=== PATIENT | female | born 1925 | race Caucasian/White ===

== ENCOUNTER → 2016-09-07 | Day surgery (SDC) | payer MEDICARE, BC ==
[~2016-09-07] MED LIST: ACETAMINOPHEN PO; ALEVE; ALEVE220 M1 PO; ALPRAZOLAM PO; ASPIRIN EC81 M1 PO; ASPIRIN PO; ASPIRIN81 M1 PO; ASPIRIN81 M2 PO; ATORVASTATIN CA10 MG PO; CIPRO PO; CLOPIDOGREL75 MG PO; COLACE PO; COREG PO; COZAAR25 MG PO; CRESTOR; CRESTOR PO; CRESTOR5 MG PO; DICLOFENAC; DICLOFENAC PO; DIOVAN HCT 80/11 TAB; DIOVAN HCT 80/11 TAB PO; EC-NAPROSYN500 MG PO; HYDROCHLOROTH12.5 M1 PO; HYDROCHLOROTH12.5 MG PO; HYDROCHLOROTHIA25 MG PO; HYDROCODON-ACE1 EACH PO; KCL PO; LISINOPRIL PO; MIRALAX255 GM PO; NABUMETONE500 MG PO; NITROGLYGERIN0.4 MG SL; NORCO 5/325 TAB1 TAB PO; ORAL GEL15 GM TOP; PREMARIN; PREMARIN VAG CR45 GM MC; PROTONIX PO; REGLAN10 MG PO; RELAFEN500 MG PO; SPIRONOLAC1 TAB 25/2 PO; TYLOX 5/500 CAP1 CAP PO; ULTRAM PO; VITAMIN D31000 UNIT; WELCHOL625 MG PO; ZOFRAN PO
--- NOTE | ~2016-09-07 | OR ---
Unit #: [id number] #: [id number] Patient: LOU MÉNDEZ [id number] [address] [address] [id number] MR#: [id number] NAME: LOU MÉNDEZ ROOM: Date of Procedure: 09/07/2016 Admission Date: 09/07/2016 Surgeon: Vamshi Lemon M.D. : 1925 Attending Physician: Vamshi Lemon M.D. Primary Care Physician: William Tabor M.D. OPERATIVE REPORT JOB NOTE: CC: [facility] PREOPERATIVE DIAGNOSES Spinal stenosis, degenerative disk disease, back pain, radiculopathy. POSTOPERATIVE DIAGNOSES Spinal stenosis, degenerative disk disease, back pain, radiculopathy. PROCEDURE PERFORMED Lumbar epidural steroid injection with intravenous sedation and fluoroscopic guidance for needle localization. INDICATIONS FOR PROCEDURE The patient is an 89-year-old female with return of back and right lower extremity pain. She has significant multilevel multifactorial degenerative disk disease. She was treated p.r.n. with epidural steroids. Last was completed 5 months ago. She did well. She is not a surgical candidate. We are going to proceed with repeat injection today. DESCRIPTION OF PROCEDURE The patient was placed in a seated position. Standard monitors were applied. 1 mg of Versed was given for sedation and anxiolysis, which was adequate. Vital signs remained stable. Sterile prep and drape then of the lumbar area was performed. The skin then at the L3-L4 level was localized with 1% lidocaine. An 18-gauge Hustead needle was then advanced via loss of resistance technique and fluoroscopic guidance in toward the epidural space. After confirming proper positioning with fluoroscopy and radiographic contrast, 80 mg of Depo-Medrol and 6 mL of 0.5% lidocaine were deposited. The patient tolerated the procedure otherwise well and discharged to the recovery room in stable condition. Dictated by... Vamshi Lemon M.D. LHP/modl TD: 09/07/2016 15:16 JOB #: [id number] Unit #: [id number] #: [id number] Patient: LOU MÉNDEZ OPERATIVE REPORT Page 1 of 1 X Vamshi Lemon MD X PROCEDURE OPERATIVE NOTE
== END | disposition home or self-care (01) ==
LOC: CCSC 10:33
DX: M51.16 Intervertebral disc disorders with radiculopathy, lumbar region (principal); M48.06 Spinal stenosis, lumbar region; I10 Essential (primary) hypertension; E11.9 Type 2 diabetes mellitus without complications; Z79.02 Long term (current) use of antithrombotics/antiplatelets; Z86.73 Personal history of transient ischemic attack (TIA), and cerebral infarction without residual deficits; Z88.2 Allergy status to sulfonamides; Z88.6 Allergy status to analgesic agent; Z88.8 Allergy status to other drugs, medicaments and biological substances; Z79.1 Long term (current) use of non-steroidal anti-inflammatories (NSAID); Z79.899 Other long term (current) drug therapy
CPT/HCPCS: J1040; J2250

== ENCOUNTER 2016-09-14 11:34 | Inpatient (IN) | payer MEDICARE, BC ==
--- NOTE | ~2016-09-14 | CR72 ---
[facility] A Service of [facility] & [facility] RADIOLOGY TEXT RESULTS PATIENT: LOU MÉNDEZ LOCATION: [place] [address] : [birth year] UNIT #: [id number] AGE: [address]: NORMA LOPES MD SEX: F ORDER DR: [id number] [facility] [address] [place], [place] [address] [id number] I MR#: [id number] Acc #: [id number] NAME: LOU MÉNDEZ. : 1925 SEX: F STUDY DATE/TIME: 09/14/2016 12:51 UNIT: [facility] ROOM: [facility] STUDY DESCRIPTION: CR Chest Single View Portable Attending Physician: Norma Lopes M.D. Ordering Physician: Avery Norman M.D. Primary Care Physician: Primary Care Physician No MEDICAL IMAGING REPORT This report is preliminary unless electronic signature is present EXAM Portable chest HISTORY Hypertension noted today. TECHNIQUE Single AP view of the chest was obtained and compared with 04/30/2014. FINDINGS Pacemaker leads are satisfactory. The heart and mediastinum are stable. In the lungs, pulmonary vascular markings are prominent and Demetria's lines are noted. Mild peribronchial cuffing is seen, as well. No pleural fluid is seen and no focal infiltrates are noted. IMPRESSION Moderate pulmonary vascular congestion and interstitial edema is noted, new since the previous exam. Dictated by... Tuan Neal M.D. THIS IS AN ELECTRONICALLY VERIFIED REPORT Tuan Neal M.D. at 09/15/2016 6:58 AM RLF/carlos TD: 09/14/2016 18:46 JOB #: [id number] MEDICAL IMAGING REPORT Page 1 of 1 COPY
--- NOTE | ~2016-09-14 | DS ---
Unit #: [id number] #: [id number] Patient: LOU MÉNDEZ [id number] [address] [address] [id number] I MR#: [id number] NAME: LOU MÉNDEZ. ROOM: 552 Age: 89 Sex: F Admission Date: 09/14/2016 : 1925 Discharge Date: 09/16/2016 Attending Physician: Presley Redd M.D. Primary Care Physician: No Primary Care Physician DISCHARGE SUMMARY PRIMARY DIAGNOSES 1. Hypertensive emergency with encephalopathy and pulmonary edema. 2. Atrial fibrillation with rapid ventricular response. SECONDARY DIAGNOSES 1. Pulmonary edema. 2. Hypertensive encephalopathy. 3. Hypokalemia. 4. Chronic back pain. 5. Abnormal CT angiogram of the neck. HOSPITAL COURSE The patient was admitted to the hospital with markedly elevated blood pressure, encephalopathy and pulmonary edema. She was started on a Cardene drip with rapid improvement in her benign prostatic hypertrophy and was transitioned to increased p.o. Coreg and Cozaar. She was able to be taken off of the drip and did well for the next 24 hours. The patient did have some symptoms that might be suggestive of sundowning and she is advised to follow up with her primary care physician for mini mental status exams and possible evaluation for early dementia. STORAGE AND BACKUP ADMINISTRATOR Dr. Arnulfo Hou - Cardiology. The patient did have an abnormal CT angiogram of the neck which, considering her advanced age of 89, would likely be treated conservatively. Consideration could be made by the patient's primary care physician, Dr. Tabor, for referral to a vascular surgeon if this is felt to be indicated, in his opinion. DISCHARGE DISPOSITION To home. DISCHARGE STATUS Stable. DISCHARGE ACTIVITY Ad reno. DISCHARGE DIET 2000 mg sodium heart healthy diet. DISCHARGE FOLLOWUP With Dr. Tabor in 2-4 weeks and follow up with Dr. Vyas in 2-6 weeks. Unit #: [id number] #: [id number] Patient: LOU MÉNDEZ DISCHARGE MEDICATIONS 1. Coreg 12.5 mg p.o. b.i.d. 2. Atorvastatin 10 mg p.o. daily. 3. Cozaar 25 mg p.o. daily. 4. Aleve 220 mg p.o. b.i.d. p.r.n. pain. 5. Plavix 75 mg p.o. daily. 6. Nitroglycerin 0.4 mg sublingual q.5 minutes p.r.n. chest pain. Dictated by... Presley Redd M.D. ABIGAIL/nilson TD: 09/17/2016 11:20 JOB #: [id number] DISCHARGE SUMMARY Page 1 of 1 X Presley Redd MD X DISCHARGE SUMMARY
--- NOTE | ~2016-09-14 | CO ---
Unit #: [id number] #: [id number] Patient: LOU MÉNDEZ [id number] [facility] [address] [place], [place] [address] [id number] MR#: [id number] NAME: LOU MÉNDEZ ROOM: 552 Age: 89 Sex: F Admission Date: 09/14/2016 : 1925 Attending Physician: Presley Redd M.D. Primary Care Physician: No Primary Care Physician CONSULTATION REPORT HISTORY OF PRESENT ILLNESS This 89-year-old white female patient was at the pain clinic for an epidural today. Her blood pressure was found to be 223/141. Her was called, and then she was sent to the ER at [facility]. She was started on a Cardene drip, and her blood pressure now is 150/80. The patient could not talk, and she was confused at the time. She is mentally clearer now. She denies any chest pain. She has no shortness of breath on exertion. No PND or orthopnea. She has history of asystole in 2006 after colonoscopy and then she subsequently had permanent pacemaker. She has been followed by Dr. Vyas and Dr. Sanchez. She has hypertension and hyperlipidemia and diet-controlled diabetes. She had a normal cardiac cath several years ago. 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 Her EKG shows no acute changes. PERSONAL HISTORY She is a nonsmoker. Used to work in a [employer] a [employer] firm called [employer]. Currently lives at home with her . 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 She also had appendectomy and hemorrhoidectomy. FAMILY HISTORY Negative for premature coronary artery disease, coronary artery disease or sudden . Mother of a stroke. HOME MEDICATIONS 1. Nitroglycerin sublingual p.r.n. 2. Coreg 6.25 b.i.d. 3. Plavix 75 mg daily. 4. Lipitor 10 mg daily. 5. Aleve 220 mg p.o. b.i.d. p.r.n. REVIEW OF SYSTEMS No fever, chills, night sweats or weight loss. All others negative except as mentioned above. PHYSICAL EXAMINATION VITAL SIGNS: Blood pressure 150/80, heart rate 80 per minute, and respiratory rate 14 per minute. GENERAL APPEARANCE: The patient is well developed. HEENT: Oral mucosa without cyanosis or pallor. No xanthelasma. NECK: No JVD. CARDIOVASCULAR: Regular rate and rhythm. PMI is not displaced on Unit #: [id number] #: [id number] Patient: LOU MÉNDEZ auscultation. S1 and S2 are normal. No S3, S4, murmur, rubs or clicks noted. VASCULAR: Carotid pulses are brisk without bruits. Abdominal aorta without bruit. Femoral and pedal pulses are normal with normal pulse amplitude. LUNGS: Lungs are clear to auscultation without rales, rhonchi or wheezes. No accessory muscle use noted. ABDOMEN: Soft, nontender. No hepatosplenomegaly. RECTAL: Deferred. EXTREMITIES: Warm and dry. No cyanosis or clubbing. No pedal edema. MUSCULOSKELETAL: No scoliosis. DERMATOLOGIC: No stasis dermatitis. NEUROLOGIC: Alert and oriented x3, pleasant affect. DIAGNOSTIC STUDIES LAB DATA: Glucose 115, BUN 15, creatinine 0.7, sodium 134, potassium 3.5. Troponin less than 0.05. WBC 7.9, hemoglobin 12.8, hematocrit 37.2, platelet count 173,000. IMPRESSION 1. Accelerated hypertension. 2. Diet-controlled diabetes. 3. Hyperlipidemia. 4. History of permanent pacemaker for asystole. 5. History of TIAs and stroke. PLAN The patient is on a Cardene drip at this time, which we will continue until morning, and then we will adjust blood pressure medications. Review echocardiogram. Thank you for letting me participate in her care. Dictated by... Sanaz Kaufman M.D. AUDRA/binu TD: 09/15/2016 11:14 JOB #: [id number] CONSULTATION REPORT Page 1 of 1 X Sanaz Kaufman MD CONSULTATION REPORT
--- NOTE | ~2016-09-14 | HP ---
Unit #: [id number] #: [id number] Patient: LOU MÉNDEZ [id number] [address] [place], [place] [address] [id number] MR#: [id number] NAME: LOU MÉNDEZ ROOM: Age: 89 Sex: F Admission Date: 09/14/2016 : 1925 Attending Physician: Avery Norman M.D. Primary Care Physician: No Primary Care Physician HISTORY AND PHYSICAL CHIEF COMPLAINT Altered mental status. HISTORY OF PRESENT ILLNESS The patient is an 89-year-old female with a history of a spinal stenosis, degenerative disease, back pain and radiculopathy, was brought from the pain clinic while waiting for the epidural with altered mental status. 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 Brought to the emergency room with an elevated blood pressure; blood pressure systolic in the range of 240s. The patient's procedure was cancelled and brought to the emergency room. The patient received the multiple doses of labetalol and still the blood pressure remained high and started on Cardene drip for the uncontrolled blood pressure with the headache and the patient said patient stopped taking the Plavix on Tuesday for the procedure and patient denies any chest pain, positive for nausea, denies any vomiting, denies any shortness of breath. The patient's CT of the head is negative for acute pathology and the patient is being admitted for the above reasons. PAST MEDICAL HISTORY History of a sick sinus syndrome, hypertension, hyperlipidemia, CVA, left ventricular hypertrophy, former smoker. PAST SURGICAL HISTORY Foot surgery, appendectomy, oophorectomy, hysterectomy, tonsillectomy, probable cystoscopy of the kidney stone, sebaceous cyst lanced, permanent pacemaker, hemorrhoidectomy, brain cyst removed. SOCIAL HISTORY The patient lives at home alone. She quit smoking in the '80s. No illicit drugs or alcohol use. FAMILY HISTORY Mother from a stroke. ALLERGIES Sulfa, opiates, Demerol. HOME MEDICATIONS She is on nitroglycerin, Coreg, Plavix, Lipitor, and Aleve. REVIEW OF SYMPTOMS Unit #: [id number] #: [id number] Patient: MIVELAZ,LOU M Positive for headache and denies any visual changes, denies any chest pain, denies any short of breath, positive for nausea, denies any abdominal pain and other systems reviewed and are negative. PHYSICAL EXAMINATION GENERAL APPEARANCE: On examination the patient is lying on a bed not in acute distress. VITAL SIGNS: Temperature is afebrile, pulse 78, respiratory rate 15, blood pressure 226/131, sating 99% at room air. HEENT: Head atraumatic and normocephalic. Pupils equal, round and reacting to light and accommodation. Extraocular movements are intact. NECK: Supple. LUNGS: Decreased air entry. HEART: Regular rate and rhythm. ABDOMEN: Soft, positive bowel sounds. EXTREMITIES: No cyanosis. No clubbing. NEUROLOGIC: Awake and alert. DIAGNOSTIC STUDIES LABORATORY DATA: Troponin less than 0.05. Urine drug careen is negative. UA shows negative bacteria. BNP is 138. Sodium 134, potassium 3.5, chloride 100, bicarb 26, glucose 115, BUN 15, creatinine 0.7, AST 21, ALT 15, alkaline phosphatase 78, WBC 7.9, hemoglobin 12.8, hematocrit 37.5, platelets 173. ASSESSMENT 1. Hypertensive urgency. 2. Altered mental status. 3. Back pain. PLAN Plan to admit to the inpatient with the telemetry. Continue with the tapering of the Cardene drip. Cardiology consult for the blood pressure management and check the echocardiogram and serial troponins and further recommendations will follow as more lab results are available. Dictated by Elvia Mckay/yenni TD: 09/14/2016 16:36 JOB #: [id number] HISTORY AND PHYSICAL Page 1 of 1 X NORMA MCDANIELS MD X HISTORY AND PHYSICAL
--- NOTE | ~2016-09-14 | CT23 ---
[facility] A Service of [facility] & [facility] RADIOLOGY TEXT RESULTS PATIENT: LOU MÉNDEZ LOCATION: [place] [address] : [birth year] UNIT #: [id number] AGE: [address]: NORMA MCDANIELS MD SEX: F ORDER DR: [id number] [facility] [address] [place], [place] [address] [id number] MR#: [id number] Acc #: [id number] NAME: LOU MÉNDEZ : 1925 SEX: F STUDY DATE/TIME: 09/14/2016 12:22 UNIT: [facility] ROOM: STUDY DESCRIPTION: CT Angio Neck Attending Physician: Avery Norman M.D. Ordering Physician: Avery Norman M.D. Primary Care Physician: Primary Care Physician No MEDICAL IMAGING REPORT This report is preliminary unless electronic signature is present EXAM CTA head and neck HISTORY Refer below. FINDINGS Please refer to the CTA head report on the same date for complete details. Dictated by... Daniella Mayberry M.D. THIS IS AN ELECTRONICALLY VERIFIED REPORT Daniella Mayberry M.D. at 09/14/2016 11:43 PM SAC/pcl TD: 09/14/2016 15:40 JOB #: [id number] MEDICAL IMAGING REPORT Page 1 of 1 COPY
--- NOTE | ~2016-09-14 | EKG ---
PATIENT: LOU MÉNDEZ UNIT #: [id number] Ventricular Rate: 69 BPM Atrial Rate: 69 BPM P-R Interval: 244 ms QRS Duration: 96 ms Q-T Interval: 396 ms QTC Calculation(Bezet): 424 ms P [place]: 85 degrees Calculated R [place]: -10 degrees Calculated T [place]: 126 degrees Diagnosis Line: Sinus rhythm with 1st degree A-V block Diagnosis Line: ST and T wave abnormality, consider lateral ischemia Diagnosis Line: Abnormal ECG Diagnosis Line: When compared with ECG of 30-APR-2014 18:08, Diagnosis Line: Inverted T waves have replaced nonspecific T wave Diagnosis Line: abnormality in Lateral leads Diagnosis Line: Confirmed by GRACIELA SIMS MD ([id number]) on Diagnosis Line: 09/16/2016 7:10:49 AM INTERPRETING MD: JOE
--- NOTE | ~2016-09-14 | CT71 ---
[facility] A Service of [facility] & [facility] RADIOLOGY TEXT RESULTS PATIENT: LOU MÉNDEZ LOCATION: [facility] [id number] : [birth year] UNIT #: [id number] AGE: [address]: Presley Redd MD SEX: F ORDER DR: [id number] [facility] [address] [place], [place] [address] [id number] I MR#: [id number] Acc #: [id number] NAME: LOU MÉNDEZ. : 1925 SEX: F STUDY DATE/TIME: 09/14/2016 12:04 UNIT: [facility] ROOM: [facility] STUDY DESCRIPTION: CT Head Wo Contrast Attending Physician: Beryl Lopes M.D. Ordering Physician: Avery Norman M.D. Primary Care Physician: Primary Care Physician No MEDICAL IMAGING REPORT This report is preliminary unless electronic signature is present EXAM CT head, 09/14/2016 HISTORY Patient moving during exam, tech held one scan. Evaluate for CVA. Altered mental at Pain Management, confused and crying, slurred speech. Hypertension, diabetes. FINDINGS This CT exam was performed with one or more of the following radiation dose reduction techniques: Automatic exposure control, adjustment of mA and/or kV according to patient size, and iterative reconstruction. CT of the head performed. Study degraded by streak artifact from hands helping to stabilized head. The comparison is dated 08/19/2013. The brainstem is unremarkable. The cerebellum shows areas of encephalomalacic change in the bilateral posterior mid cerebellar hemispheres, more pronounced on left than right and consistent with remote vascular insult. No change in appearance from prior study. There is no evidence of acute cerebellar abnormality. The cerebral hemispheres show overall preservation of hollis matter-white matter differentiation. No hemorrhage. No evidence of acute cortical ischemia. The midline structures are nondisplaced. No acute basal ganglia abnormality. There are periventricular and deep white matter tract probable sequelae of chronic microvascular ischemia. There is no intra- or extraaxial mass effect or abnormal intracranial fluid collection. The ventricles, cisterns and sulci show mild generalized enlargement consistent with mild generalized atrophy. Similar appearance on prior examination. There are cavernous carotid and distal vertebral arterial calcifications. The visualized intraorbital soft tissues are unremarkable. Mucosal thickening ethmoid air cells. There is no evidence of acute sinus disease. No acute bony abnormality. [facility] A Service of [facility] RADIOLOGY TEXT RESULTS PATIENT: LOU MÉNDEZ LOCATION: [place] [address] : [birth year] UNIT #: [id number] AGE: [address]: Presley Redd MD SEX: F ORDER DR: IMPRESSION 1. No acute abnormality is seen in the brain. If the patient has ongoing neurologic symptoms, consider follow-up imaging, preferably with MRI if the patient is a candidate. Study somewhat degraded by streak artifact from technologist hands used to stabilize head. 2. Areas of chronic encephalomalacic change bilateral cerebellar hemispheres. No change from 2014 and likely reflecting remote vascular insults. 3. Mild generalized atrophy. Stable. 4. Periventricular and deep white matter tract probable sequelae of chronic microvascular ischemia. Stable. Dictated by... Jasen Bernard M.D. THIS IS AN ELECTRONICALLY VERIFIED REPORT Jasen Bernard M.D. at 09/15/2016 6:04 PM JUAN DAVID/carlos TD: 09/14/2016 18:40 JOB #: [id number] MEDICAL IMAGING REPORT Page 1 of 1 COPY
--- NOTE | ~2016-09-14 | CT17 ---
[facility] A Service of [facility] RADIOLOGY TEXT RESULTS PATIENT: LOU MÉNDEZ LOCATION: [place] [address] : [birth year] UNIT #: [id number] AGE: [address]: NORMA MCDANIELS MD SEX: F ORDER DR: [id number] [facility] [address] [place], [place] [address] [id number] MR#: [id number] Acc #: [id number] NAME: LOU MÉNDEZ : 1925 SEX: F STUDY DATE/TIME: 09/14/2016 12:22 UNIT: [facility] ROOM: STUDY DESCRIPTION: CT Angio Head Attending Physician: Avery Norman M.D. Ordering Physician: Avery Norman M.D. Primary Care Physician: Primary Care Physician No MEDICAL IMAGING REPORT This report is preliminary unless electronic signature is present EXAM CT angiogram head and neck HISTORY Evaluate for CVA. 89-year-old female with a history of hypertension, diabetes and cardiac disease presents with altered mental status at pain management. She is confused and crying with slurred speech today. TECHNIQUE CT angiography head and neck vessels performed during the intravenous administration of 100 mL of Isovue-370. Imaging acquired in the axial plane followed by multiple reconstructed and reformatted images for the purposes of 3-D CT angiography head and neck vessels. This CT exam was performed with one or more of the following radiation dose reduction techniques: automatic exposure control, adjustment of mA and/or kV according to patient size, and iterative reconstruction. COMPARISON STUDIES Comparison is made earlier head CT, same day. FINDINGS CT ANGIOGRAM NECK: The arch shows atherosclerotic vascular calcifications, including great vessel origins. No hemodynamically-significant narrowing is suspected at great vessel origins and there is bovine origin of the left common carotid artery. There is atherosclerotic vascular calcification at the origin of the right subclavian. This probably does result in significant stenosis, perhaps moderate, not optimally assessed on this study of the head and neck. Assessment of the right carotid system shows partially calcified atherosclerotic plaque involving the distal common and internal carotid [facility] A Service of [facility] RADIOLOGY TEXT RESULTS PATIENT: LOU MÉNDEZ LOCATION: [facility] [id number] : [birth year] UNIT #: [id number] AGE: [address]: NORMA MCDANIELS MD SEX: F ORDER DR: artery, including the bulb. By NASCET criteria, there is essentially 0% diameter stenosis. There is [id number] stenosis supraclinoid ICA on the right. Assessment of the left carotid system shows partially calcified plaque at the bifurcation but by NASCET criteria, there is 0% stenosis. There is calcified plaque in the siphon with [id number]-[id number] stenosis, likely supraclinoid ICA. The right vertebral artery is patent throughout. The left vertebral artery is patent throughout. Both supply the basilar. Evaluation of the intracranial circulation shows areas of likely true stenosis in the left MCA territory, including proximal left M2 vessel and sylvian vessel. There is long segment irregular stenosis in the more distal left MCA vessels likely. The right MCA vessels have a more normal appearance. The left P1 vessel is quite hypoplastic. There is a large left posterior communicator with essentially origin left posterior cerebral artery distribution. There is possibly a right posterior communicator with some duplication right posterior cerebral artery distribution. This anatomy is not clear. The major dural venous sinuses are grossly patent. No significant anterior communicating artery is seen. There are chronic insults to cerebellum noted on the head CT. Some irregularity is seen in the left posterior cerebral artery distribution. As noted above, the anatomy of the right posterior cerebral artery is not well delineated and I cannot exclude some type of collateral supply/disease. Patient has had cataract surgery bilaterally. The paranasal sinuses and mastoid air cells are clear. There are degenerative changes in the cervical spine. IMPRESSION 1. By NASCET criteria, 0% stenosis at either carotid bifurcation. Both vertebral arteries are patent and supply the basilar. 2. There is likely hemodynamically significant stenosis at the origin of the right subclavian vessel. 3. There is likely hemodynamically significant stenosis in the bilateral carotid siphons. 4. There are areas of irregular narrowing in the left MCA territory, including left M2 vessel fairly proximally as well as multiple areas in the sylvian branches. This could be due to intracranial atherosclerotic disease or possibly thromboembolic disease with some recanalization. 5. There is probably atherosclerotic disease involving both posterior cerebral artery distributions. It appears that there is origin to the left posterior cerebral artery distribution with a very hypoplastic left P1 vessel. Anatomy on the right side is more complex. There is probably at least some atherosclerotic disease to [facility] A Service of [facility] RADIOLOGY TEXT RESULTS PATIENT: LOU MÉNDEZ LOCATION: [facility] : [birth year] UNIT #: [id number] AGE: [address]: NORMA MCDANIELS MD SEX: F ORDER DR: the posterior cerebral artery distribution. Allowing for the complex anatomy, no definite vascular cutoff is seen. If the patient is a candidate for MRI, this would be suggested to further evaluate the possibility of acute stroke. 6. There is no suspicion for an intracranial aneurysm, allowing for the technical limitation of CT angiography in general for assessment for assessment of aneurysm at the level of the skull base. STAT * RESULT Dictated by... Daniella Mayberry M.D. THIS IS AN ELECTRONICALLY VERIFIED REPORT Daniella Mayberry M.D. at 09/14/2016 11:43 PM WOJCIECH/madhuri TD: 09/14/2016 15:24 JOB #: [id number] MEDICAL IMAGING REPORT Page 1 of 1 COPY
[~2016-09-14 11:34] MED LIST changes: -COZAAR25 MG PO
[2016-09-14 12:02] LABS: BASOPHIL# 0.1 X10e3 (0-0.3); BASOPHIL% 0.8 % (0-2.5); EOSINOPHIL# 0.1 X10e3 (0-0.7); EOSINOPHIL% 0.9 % (0.0-7.0); HEMATOCRIT 37.5 % (35.0-45.0); HEMOGLOBIN 12.8 gm/dL (12.0-16.0); LYMPHOCYTE# 2.4 X10e3 (1.0-3.5); LYMPHOCYTE% 29.9 % (17.0-45.0); MEAN CELL VOLUME 96.2 FL (83-96); MEAN CORPUSCULAR HEMOGLOBIN 32.8 PG (28-34); MEAN CORPUSCULAR HGB CONC 34.1 g/dL (30-36); MEAN PLATELET VOLUME 8.9 FL (6.5-11.5); MONOCYTE# 0.6 X10e3 (0-1.0); MONOCYTE% 7.2 % (3.0-12.0); NEUTROPHIL# 4.8 X10e3 (1.5-7.1); NEUTROPHIL% 61.2 % (40-75); PLATELET COUNT 173 X10e3 (140-420); RED BLOOD COUNT 3.89 X10e (3.90-5.30); RED CELL DISTRIBUTION WIDTH 14.3 % (11.0-15.5); WHITE BLOOD COUNT 7.9 X10e3 (4.0-10.5)
[2016-09-14 12:03] LABS: DIFF IND NO
[2016-09-14 12:16] LABS: PARTIAL THROMBOPLASTIN TIME 24.9 SECONDS (23.5-31.3); PROTHROMBIN TIME (PATIENT) 10.9 SECONDS (10.0-11.7)
[2016-09-14 12:26] LABS: POC - CREATININE 0.76 mg/dL (0.44-1.03); POC - GFR >60.0 mL/min (>60)
[2016-09-14 12:29] LABS: ALBUMIN SERUM 4.1 g/dL (3.5-5.0); BILIRUBIN, DIRECT 0.1 mg/dL (0.0-0.2); BILIRUBIN,INDIRECT 0.4 mg/dL (0.0-0.9); BILIRUBIN,TOTAL 0.5 mg/dL (0.2-2.0); BUN/CREATININE RATIO 21.42; CALCIUM SERUM 9.5 mg/dL (8.4-10.2); CREATININE SERUM 0.7 mg/dL (0.6-1.4); GLOM FILT RATE Estimated 76.8 mL/min (>60); POTASSIUM 3.5 mmol/L (3.5-5.1); PROTEIN TOTAL SERUM 7.6 g/dL (6.0-8.3)
[2016-09-14 13:54] LABS: URINE SOURCE CLEAN CATCH
[2016-09-14 14:18] LABS: URINE APPEARANCE CLEAR; URINE BILIRUBIN NEG (NEG); URINE BLOOD TRACE (NEG); URINE COLOR YELLOW; URINE GLUCOSE NEG (NEG); URINE KETONE NEG (NEG); URINE LEUKOCYTE ESTERASE NEG (NEG); URINE NITRATE NEG (NEG); URINE PH 8.5 (5-8); URINE PROTEIN NEG (NEG); URINE SPECIFIC GRAVITY 1.012 (1.003-1.035); URINE UROBILINOGEN 0.2 MG/DL (NEG)
[2016-09-14 14:23] LABS: URINE BACTERIA AUWI NEG (NEGATIVE); URINE SQUAMOUS EPITHELIAL CELL NONE SEEN /[HPF]; UWBCS1 AUWI 0-2 (0-5)
[2016-09-14 14:24] LABS: CULTURE INDICATED? NO
[2016-09-14 14:39] LABS: AMPHETAMINE NEG (NEG); BARBITURATES NEG (NEG); BENZODIAZEPINES NEG (NEG); COCAINE NEG (NEG); MARIJUANA NEG (NEG); OPIATES NEG (NEG); TRICYCLIC ANTIDEPRESSANTS NEG (NEG); U METHADONE NEG (NEG)
[2016-09-14 14:58] LABS: POC - CKMB <1.0 ng/mL (0.0-7.9); POC - TROPONIN <0.05 ng/mL (<=0.05)
[2016-09-14 21:26] LABS: CK TOTAL 34 IU/L (26-140)
[2016-09-15 06:06] LABS: BUN/CREATININE RATIO 21.42; CALCIUM SERUM 8.7 mg/dL (8.4-10.2); CREATININE SERUM 0.7 mg/dL (0.6-1.4); GLOM FILT RATE Estimated 76.8 mL/min (>60); POTASSIUM 3.1 mmol/L (3.5-5.1)
[2016-09-15 06:55] LABS: BASOPHIL# 0.1 X10e3 (0-0.3); BASOPHIL% 1.1 % (0-2.5); EOSINOPHIL# 0.1 X10e3 (0-0.7); EOSINOPHIL% 1.1 % (0.0-7.0); HEMATOCRIT 34.9 % (35.0-45.0); HEMOGLOBIN 12.1 gm/dL (12.0-16.0); LYMPHOCYTE# 1.7 X10e3 (1.0-3.5); LYMPHOCYTE% 30.2 % (17.0-45.0); MEAN CELL VOLUME 95.6 FL (83-96); MEAN CORPUSCULAR HEMOGLOBIN 33.1 PG (28-34); MEAN CORPUSCULAR HGB CONC 34.6 g/dL (30-36); MEAN PLATELET VOLUME 8.6 FL (6.5-11.5); MONOCYTE# 0.5 X10e3 (0-1.0); MONOCYTE% 8.7 % (3.0-12.0); NEUTROPHIL# 3.3 X10e3 (1.5-7.1); NEUTROPHIL% 58.9 % (40-75); PLATELET COUNT 165 X10e3 (140-420); RED BLOOD COUNT 3.65 X10e (3.90-5.30); RED CELL DISTRIBUTION WIDTH 14.2 % (11.0-15.5); WHITE BLOOD COUNT 5.6 X10e3 (4.0-10.5)
[2016-09-15 07:17] LABS: CK TOTAL 39 IU/L (26-140)
[2016-09-15 07:19] LABS: DIFF IND NO
[2016-09-16 06:23] LABS: CALCIUM SERUM 9.4 mg/dL (8.4-10.2); CREATININE SERUM 0.7 mg/dL (0.6-1.4); GLOM FILT RATE Estimated 76.8 mL/min (>60); POTASSIUM 4.6 mmol/L (3.5-5.1)
[2016-09-16] MEDS ORDERED: COZAAR25 MG PO (11:37)
== END 2016-09-16 12:29 | disposition home or self-care (01) | DRG 305 ==
LOC: CED 11:34 → CEDOF 15:30 → CED 15:30 → CEDOF 16:54 → C5B 17:45 → CEDOF 17:45 → C5B 09-15 07:29
PROVIDERS: Emergency Medicine; Internal Medicine
PROC: B325YZZ Computerized Tomography (CT Scan) of Bilateral Common Carotid Arteries using Other Contrast (ICD-10-PCS; principal; 2016-09-14)
PROC: B32GYZZ Computerized Tomography (CT Scan) of Bilateral Vertebral Arteries using Other Contrast (ICD-10-PCS; 2016-09-14)
PROC: B32RYZZ Computerized Tomography (CT Scan) of Intracranial Arteries using Other Contrast (ICD-10-PCS; 2016-09-14)
PROC: B328YZZ Computerized Tomography (CT Scan) of Bilateral Internal Carotid Arteries using Other Contrast (ICD-10-PCS; 2016-09-14)
PROC: B24BZZZ Ultrasonography of Heart with Aorta (ICD-10-PCS; 2016-09-15)
DX: I16.0 Hypertensive urgency (principal); J81.1 Chronic pulmonary edema; I67.4 Hypertensive encephalopathy; I48.91 Unspecified atrial fibrillation; Z87.891 Personal history of nicotine dependence; E87.6 Hypokalemia; G89.29 Other chronic pain; M54.9 Dorsalgia, unspecified; R93.8 Abnormal findings on diagnostic imaging of other specified body structures; Z95.0 Presence of cardiac pacemaker; E78.5 Hyperlipidemia, unspecified; Z86.73 Personal history of transient ischemic attack (TIA), and cerebral infarction without residual deficits; E11.9 Type 2 diabetes mellitus without complications; I25.10 Atherosclerotic heart disease of native coronary artery without angina pectoris; Z90.710 Acquired absence of both cervix and uterus; Z82.3 Family history of stroke; Z82.49 Family history of ischemic heart disease and other diseases of the circulatory system; Z88.2 Allergy status to sulfonamides; Z88.5 Allergy status to narcotic agent
CPT/HCPCS: 36415; 70450; 70496; 70498; 71010; 80048; 80076; 80307; 81003; 82550; 82553; 82565; 82947; 83735; 83880; 84484; 85025; 85610; 85730; 93005; 93306; 94760; 96374; 96375; 96376; 97161; 97162; 97166; 97530; 99285; G8978-GP; G8979-GP; G8980-GP; G8987-GO; G8987-GP; G8988-GO; G8988-GP; J1040; J2250; Q9967